=== PATIENT | female | born 1990 | race Caucasian/White ===

== ENCOUNTER 2018-07-22 11:11 | Emergency (ER) | payer BC ==
[~2018-07-22] VITALS: Ht 172.7 cm; Wt 68.0 kg
[2018-07-22 11:48] VITALS: BP 129/79
--- NOTE | 2018-07-22 12:51 | Emergency Room Report ---
History of Present Illness General Chief Complaint: Laceration Source: Patient Present Illness HPI The patient states that she was holding her cat when a dog that the cat does not like came into the room. She states the cat panicked and scratched her allover her hands, abdomen and chest, face and scalp. She states that she has cut all over. She did wash out the wounds on her face. She did have a tetanus update 2 years ago. She has no other complaints. Allergies: Coded Allergies: No Known Allergies (Unverified , 07/22/18) Patient History Past Medical History: none, see triage record Social History: Denies: smoking, alcohol use, drug use Last Menstrual Period: Jul 15, 2018 Reviewed Nursing Documentation: PMH: Agreed; PSxH: Agreed Nursing Documentation-PMH Past Medical History: No Stated History Review of Systems All Other Systems: negative except mentioned in HPI Physical Exam Vital Signs Date Time Temp Pulse Resp B/P (MAP) Pulse Ox O2 Delivery O2 Flow Rate FiO2 07/22/18 11:16 98.7 72 15 136/77 95 Room Air 98.8 Sp02 EP Interpretation: reviewed, normal General Appearance: no apparent distress, alert, GCS 15, non-toxic Head: normocephalic, atraumatic, other - see skin exam Eyes: bilateral eye normal inspection, bilateral eye PERRL ENT: hearing grossly normal, normal pharynx, no angioedema, normal voice Neck: full range of motion Respiratory: no respiratory distress, no retraction, no accessory muscle use, speaking full sentences Cardiovascular #1: regular rate, rhythm, no edema Gastrointestinal: normal bowel sounds, non tender, soft, non-distended, no guarding, no rebound Rectal: deferred Musculoskeletal: back normal, gait/station normal, normal range of motion, non- tender Neurologic: alert, oriented x3, responsive, motor strength/tone normal, sensory intact, speech normal Psychiatric: judgement/insight normal, memory normal, mood/affect normal, no suicidal/homicidal ideation Skin: warm/dry, well hydrated, other - Scattered abrasions and superficial lacerations on hands, forearms, neck, face, abdomen. There is also a 2 mm laceration on the posterior scalp. Lymphatic: no adenopathy Medical Decision Making Diagnostic Impression: Primary Impression: Cat scratch of multiple sites Additional Impressions: Scalp laceration Multiple abrasions ER Course Patient has multiple abrasions and lacerations secondary to cat scratches. The patient has a deeper laceration on the posterior forehead. However, given the nature of the scratch in the location, I felt that I did not need to close this wound. Is not actively bleeding. The location on the scalp does not cause cosmetic deformity. The patient was instructed to clean her wounds with soap and water. I will also place the patient on Augmentin to prevent infection. The patient is given close return precautions and follow-up instructions. Last Vital Signs Date Time Temp Pulse Resp B/P (MAP) Pulse Ox O2 Delivery O2 Flow Rate FiO2 07/22/18 11:48 98.8 82 15 129/79 98 Room Air 98.8 Status: improved Disposition: HOME, SELF-CARE Condition: Improved Referrals: NOT CHOSEN IPA/,REFERRING (PCP) Patient Instructions: Nonsutured Laceration Care Taylor Ibarra DO Jul 22, 2018 12:51
[2018-07-22] MEDS ORDERED: AUGMENTIN 875-1 EAC1 ORAL (12:52)
[2018-07-22 12:56] VITALS: BP 129/79
== END 2018-07-22 12:56 | disposition home or self-care (01) ==
LOC: EMR 12:15
DX: S60.512A Abrasion of left hand, initial encounter (principal); S60.511A Abrasion of right hand, initial encounter; S50.812A Abrasion of left forearm, initial encounter; S50.811A Abrasion of right forearm, initial encounter; S00.81XA Abrasion of other part of head, initial encounter; S10.91XA Abrasion of unspecified part of neck, initial encounter; S30.811A Abrasion of abdominal wall, initial encounter; S01.01XA Laceration without foreign body of scalp, initial encounter; W55.03XA Scratched by cat, initial encounter; Y92.9 Unspecified place or not applicable
CPT/HCPCS: 99282